=== PATIENT | female | born 1935 | race Caucasian/White ===

== ENCOUNTER 2017-01-21 22:22 | Emergency (ER) | payer MEDICARE, OTHER ==
[~2017-01-21] VITALS: Ht 157.5 cm; Wt 59.0 kg
[~2017-01-21 22:22] MED LIST: ALEN70SO PO; ASPI-605 PO; ATEN50TA PO; FLUO40CA8 PO; GLIP5TAB13 PO; LEVO50TA8 PO; LISI20TA61 PO; METF500T4 PO
--- NOTE | 2017-01-21 22:22 | NUR ---
TO BED 3 BIB PARAMEDICS C/O POSSIBLE SYNCOPE PER EMS REPORT. NO OBVIOUS HEAD TRAUMA NOTED. PLACE PT ON CARDIAC MONITORING, CONTINUOUS POX. PT AAOX2 NO ACUTE DISTRESS NOTED, RESP EVEN AND UNLABORED. SL 18G TO R FOREARM RADIATOR CORE TESTER.
--- NOTE | 2017-01-21 22:44 | NUR ---
MAC ARTIST AT BEDSIDE FOR BLOOD DRAW.
--- NOTE | 2017-01-21 22:58 | NUR ---
PT DAUGHTER AT BEDSIDE.
--- NOTE | 2017-01-21 22:59 | NUR ---
PT TRANSPORTED TO RADIOLOGY FOR CT HEAD.
--- NOTE | 2017-01-21 23:10 | NUR ---
PT BACK FROM RADIOLOGY. PENDING CT HEAD RESULT.
[2017-01-21 23:12] LABS: EOSINOPHILS # (AUTO) 0.1 /CMM (0.0-0.7); EOSINOPHILS % (AUTO) 0.4 % (0.0-6.0); HEMATOCRIT 32 % (33-45); HEMOGLOBIN 9.5 g/dL (11.5-14.8); LYMPHOCYTES # (AUTO) 1.1 /CMM (0.8-4.8); MEAN CORPUSCULAR HEMOGLOBIN 17 PG (26.0-33.0); MEAN CORPUSCULAR HGB CONC 29 g/dl (31.0-36.0); MEAN CORPUSCULAR VOLUME 58 fL (82-100); MONOCYTES # (AUTO) 0.5 /CMM (0.1-1.30); MONOCYTES % (AUTO) 4.1 % (2.0-12.0); NEUTROPHILS # (AUTO) 10.5 /CMM (1.8-8.9); NEUTROPHILS % (AUTO) 86.5 % (43.0-81.0); PLATELET COUNT (AUTO) 383 /CMM (150-450); RDW COEFFICIENT OF VARIATION 18.9 (11.5-15.0); RED BLOOD CELL COUNT(AUTO) 5.59 MIL/uL (4.0-5.2); WHITE BLOOD COUNT (AUTO) 12.2 K/uL (4.3-11.0)
[2017-01-21 23:25] LABS: CALCIUM, SERUM 9.4 mg/dL (8.5-10.1); CARBON DIOXIDE 29 mmol/L (21-32); CHLORIDE 106 mmol/L (98-107); GLUCOSE 311 mg/dL (74-106); POTASSIUM 4.4 mmol/L (3.5-5.1); SODIUM SERUM 142 mmol/L (136-145); UREA NITROGEN, BLOOD 18 mg/dL (7-18)
[2017-01-21 23:26] LABS: INR 0.92 (0.87-1.13); PROTHROMBIN TIME 9.6 SECS (9.5-12.7)
[2017-01-21 23:30] LABS: ALANINE AMINOTRANSFERASE 23 U/L (12-78); ALBUMIN 3.5 g/dL (3.4-5.0); ALKALINE PHOSPHATASE 164 U/L (46-116); ASPARTATE AMINOTRANSFERASE 15 U/L (15-37); BILIRUBIN,DIRECT 0.1 mg/dL (0.0-0.2); BILIRUBIN,TOTAL 0.4 mg/dL (0.2-1.0); TOTAL PROTEIN, SERUM 7.2 g/dL (6.4-8.2); TROPONIN I < 0.017 ng/mL (0.00-0.056)
--- NOTE | 2017-01-22 00:08 | NUR ---
PAGED PERLITE GRINDER PANEL JASPER TREVIZO
[2017-01-22 00:18] LABS: EOSINOPHILS % (MANUAL) 1 % (0-4); LYMPHOCYTES % (MANUAL) 8 % (16-48); MONOCYTES % (MANUAL) 4 % (0-11.0); NEUTROPHILS % (MANUAL) 87 (42-76)
--- NOTE | 2017-01-22 00:20 | NUR ---
PATIENT'S DAUGHTER PROVIDED ME WITH HER [employer] CARD. I CALLED [facility], I NOTIFIED THEM ER PHYSICIAN IS READY TO PRESENT CASE TO [facility].
--- NOTE | 2017-01-22 00:23 | NUR ---
MARY HERNÁNDEZ TALKING TO DR. GOOD FROM [facility] REGARDING PT.
--- NOTE | 2017-01-22 00:23 | NUR ---
RECEIVED CALL FROM [place] DR. GOOD; CALL TRANSFERED TO DR. STONE.
--- NOTE | 2017-01-22 00:37 | NUR ---
SPOKE TO [facility] WITH TRANSFER INFO RECEIVED. PT WILL BE GOING TO [facility], ACCEPTING MD DIEHL, PHONE NUMBER FOR REPORT . TRANSPORT ETA [id number].
--- NOTE | 2017-01-22 00:42 | NUR ---
REPORT CALLED TO [facility]. AWAITING TRANSPORT.
--- NOTE | 2017-01-22 01:51 | NUR ---
AMBULANCE CREW AT BEDSIDE FOR TRANSFER TO [facility]
--- NOTE | 2017-01-22 01:54 | NUR ---
REPORT GIVEN TO COMMITTEE MEMBERYANIRA IMRELES.
--- NOTE | 2017-01-22 02:13 | NUR ---
PT VERY AGITATED, REFUSING TRANSPORT. PT CONFUSED, NO ACUTE DISTRESS NOTED, RESP EVEN AND UNLABORED. ER MD AT BEDSIDE TO RE-EVAL PT WITH ORDERS RECEIVED. WILL CARRY OUT ORDERS.
[2017-01-22] MEDS ORDERED: LORAZEPAM INJ 2 MG/ML VIAL ONE (02:15)
--- NOTE | 2017-01-22 02:22 | NUR ---
PT MEDICATED BY RN PER ER MD ORDER.
[2017-01-22] MEDS ORDERED: LORAZEPAM INJ 2 MG/ML VIAL IV ONE (02:30)
[2017-01-22 02:32] VITALS: BP 124/63
--- NOTE | 2017-01-22 02:55 | NUR ---
PATIENT AGREED TO GO WITH TRANSPORT AT THIS TIME. PATIENT PICKED UP BY AMBULANCE CREW. PATIENT IS ALERT RESPONSIVE. VSS.
== END 2017-01-22 01:55 | disposition short-term general hospital (02) ==
LOC: ER 22:26
DX: R53.1 Weakness (principal); R55 Syncope and collapse; D64.9 Anemia, unspecified; I10 Essential (primary) hypertension; E11.9 Type 2 diabetes mellitus without complications; G30.9 Alzheimer's disease, unspecified; Z79.82 Long term (current) use of aspirin; Z79.84 Long term (current) use of oral hypoglycemic drugs
CPT/HCPCS: 36415; 70450; 71010; 80048; 80076; 84484; 85025; 85730; 93005; 96374; 99285; A4606; J2060; Z7610

== ENCOUNTER 2020-12-13 22:30 | Emergency (ER) | payer BC, MEDICAID, OTHER ==
[~2020-12-13] VITALS: Ht 167.6 cm; Wt 84.4 kg
[~2020-12-13 22:30] MED LIST changes: +LISI20TA31 PO; -LISI20TA61 PO; +METF-440 PO; -METF500T4 PO
--- NOTE | 2020-12-13 22:40 | NUR ---
PT BIBRA 78 C/O SYNCOPAL EPISODE ON TOILET LONGER THAN 25 MINUTES. BIBRA 78 C/O SYNCOPAL EPISODE ON TOILET LONGER THAN 25 MINUTES. A/OX3. TOLERATING ROOM AIR WELL
[2020-12-13] MEDS ORDERED: IV NS 0.9% 1,000 ML BAG IV ONE (23:00)
--- NOTE | 2020-12-13 23:01 | NUR ---
BLOOD WORK DRAWN. COVID SWAB COLLECTED VIA TEMPLATE MAKER AND SENT TO LAB
[2020-12-13 23:10] LABS: BASOPHILS % (AUTO) 0.4 % (0.0-2.0); EOSINOPHILS % (AUTO) 0.5 % (0.0-6.0); HEMATOCRIT 40 % (33-45); HEMOGLOBIN 11.9 g/dL (11.5-14.8); LYMPHOCYTES # (AUTO) 1.1 K/uL (0.8-4.8); LYMPHOCYTES % (AUTO) 9.3 % (20.0-44.0); MEAN CORPUSCULAR HGB CONC 30 g/dl (31.0-36.0); MEAN CORPUSCULAR VOLUME 69 fL (82-100); MONOCYTES # (AUTO) 0.9 K/uL (0.1-1.30); MONOCYTES % (AUTO) 7.8 % (2.0-12.0); NEUTROPHILS # (AUTO) 9.7 K/uL (1.8-8.9); PLATELET COUNT (AUTO) 380 K/uL (150-450); RED BLOOD CELL COUNT(AUTO) 5.79 MIL/uL (4.0-5.2); WHITE BLOOD COUNT (AUTO) 11.8 K/uL (4.3-11.0)
--- NOTE | 2020-12-13 23:20 | NUR ---
PT RETURNED FROM CT TO ER BED 4 VIA THEO
[2020-12-13 23:28] LABS: CALCIUM, SERUM 8.9 mg/dL (8.5-10.1); CARBON DIOXIDE 24 mmol/L (21-32); CHLORIDE 105 mmol/L (98-107); CREATININE 1.2 mg/dL (0.6-1.3); GLUCOSE 267 mg/dL (74-106); POTASSIUM 4.4 mmol/L (3.5-5.1); SODIUM SERUM 137 mmol/L (136-145); UREA NITROGEN, BLOOD 28 mg/dL (7-18)
[2020-12-13 23:37] LABS: ALANINE AMINOTRANSFERASE 31 U/L (12-78); ALBUMIN 3.4 g/dL (3.4-5.0); ALKALINE PHOSPHATASE 123 U/L (46-116); ASPARTATE AMINOTRANSFERASE 22 U/L (15-37); BILIRUBIN,DIRECT 0.1 mg/dL (0.0-0.2); BILIRUBIN,TOTAL 0.3 mg/dL (0.2-1.0); TOTAL PROTEIN, SERUM 6.5 g/dL (6.4-8.2)
--- NOTE | 2020-12-14 00:07 | NUR ---
URINE SAMPLE COLLECTED AND SENT TO LAB
[2020-12-14 00:23] LABS: BILIRUBIN,URINE MODERATE (NEGATIVE); COLOR,URINE YELLOW (YELLOW); LEUKOCYTE ESTERASE ,URINE Small (NEGATIVE); NITRITE, URINE Negative (NEGATIVE); PH,URINE 5.5 (5.0-8.0); PROTEIN,URINE 30 mg/dl (NEGATIVE); UGLUCOSE Negative (NEGATIVE)
--- NOTE | 2020-12-14 00:29 | NUR ---
IV removed. Catheter intact and site benign. Pressure and 4x4 applied to site. No bleeding noted.
--- NOTE | 2020-12-14 00:29 | NUR ---
Guanako jean in ED - 12/14/20 at 0029 by ARNEL Patient discharged to home in stable condition. Written and verbal after care instructions given. Patient verbalizes understanding of instruction.
--- NOTE | 2020-12-14 00:29 | NUR ---
Patient's Daughter (POA) does not wish to proceed with medical care recommended by Dr. Sarmiento. Patient and Patient's daughter given information related to possible complications, up to and including , which could occur as a result of leaving the hospital at this time. Patient's daughter verbalizes understanding of risks involved due to leaving against medical advice. Patient has signed AMA form.
[2020-12-14 00:30] VITALS: BP 109/76
[2020-12-14 00:41] LABS: BACTERIA,URINE Moderate /HPF (None Seen)
[2020-12-14 00:42] LABS: HYALINE CASTS, URINE Moderate /LPF (None Seen); SQUAMOUS EPITHELIAL CELL,UR Many /HPF (None Seen); WBC,URINE 21-50 /HPF (0-3)
[2020-12-14 00:43] LABS: MUCUS,URINE Moderate /LPF (None Seen)
== END 2020-12-14 00:31 | disposition left against medical advice (07) ==
LOC: ER 22:34
DX: R55 Syncope and collapse (principal); R41.0 Disorientation, unspecified; G30.9 Alzheimer's disease, unspecified; F02.80 Dementia in other diseases classified elsewhere, unspecified severity, without behavioral disturbance, psychotic disturbance, mood disturbance, and anxiety; I10 Essential (primary) hypertension; E10.9 Type 1 diabetes mellitus without complications; Z98.890 Other specified postprocedural states; Z79.899 Other long term (current) drug therapy; Z79.82 Long term (current) use of aspirin; Z79.84 Long term (current) use of oral hypoglycemic drugs
CPT/HCPCS: 36415; 70450; 71045; 80048; 80076; 81001; 84484; 85025; 87086; 93005; 96360; 99285; J7030

== ENCOUNTER 2022-06-11 13:13 | Emergency (ER) | payer BC, MEDICARE ==
[~2022-06-11] VITALS: Ht 165.1 cm; Wt 63.5 kg
--- NOTE | 2022-06-11 13:31 | NUR ---
PT A/O X4 STATES THAT SHE HAD FALLEN BACKWARD ON HER BACK AND IS NOW COMPLAINING OF PAIN. NO HEAD TRAUMA REPORTED BY THE PT. UPON INSPECTION NO HEAD TRAUMA NOTED. BACK IS TENDER TO TOUCH SLIGHTLY SWOLLEN. Addendum: 06/11/22 at 1332 by JOSEPHON PT CONNECTED TO BP AND PULSE OX MONITORING.
[2022-06-11] MEDS ORDERED: IBUPROFEN 600 MG TABLET PO ONE (14:30)
[2022-06-11] MEDS ORDERED: IBUPROFEN 600 MG TABLET ONE (14:34)
[2022-06-11 17:00] VITALS: BP 142/79
== END 2022-06-11 17:02 | disposition home or self-care (01) ==
LOC: ER 13:18
DX: S82.831A Other fracture of upper and lower end of right fibula, initial encounter for closed fracture (principal); S92.341A Displaced fracture of fourth metatarsal bone, right foot, initial encounter for closed fracture; I10 Essential (primary) hypertension; E10.8 Type 1 diabetes mellitus with unspecified complications; Z79.899 Other long term (current) drug therapy; W18.30XA Fall on same level, unspecified, initial encounter; Y93.01 Activity, walking, marching and hiking; Y92.89 Other specified places as the place of occurrence of the external cause; Y99.8 Other external cause status
CPT/HCPCS: 73564-TC; 73590-TC; 73610-TC; 73630-TC

== ENCOUNTER 2023-02-20 07:50 | Inpatient (IN) | payer BC ==
[~2023-02-20] VITALS: Ht 157.5 cm; Wt 64.4 kg
[2023-02-20] MEDS ORDERED: DONE10TA11 PO (09:37)
[2023-02-20] MEDS ORDERED: FLUO10CA26 PO (09:37)
[2023-02-20 09:38] LABS: BASOPHILS % (AUTO) 0.2 % (0.0-2.0); EOSINOPHILS # (AUTO) 0.1 K/uL (0.0-0.7); EOSINOPHILS % (AUTO) 0.9 % (0.0-6.0); HEMATOCRIT 47 % (33-45); HEMOGLOBIN 14.9 g/dL (11.5-14.8); LYMPHOCYTES # (AUTO) 1.3 K/uL (0.8-4.8); LYMPHOCYTES % (AUTO) 16.5 % (20.0-44.0); MEAN CORPUSCULAR HEMOGLOBIN 26 PG (26.0-33.0); MEAN CORPUSCULAR HGB CONC 32 g/dl (31.0-36.0); MEAN CORPUSCULAR VOLUME 81 fL (82-100); MONOCYTES # (AUTO) 0.5 K/uL (0.1-1.30); MONOCYTES % (AUTO) 5.9 % (2.0-12.0); NEUTROPHILS % (AUTO) 76.5 % (43.0-81.0); PLATELET COUNT (AUTO) 262 K/uL (150-450); RED BLOOD CELL COUNT(AUTO) 5.76 MIL/uL (4.0-5.2); RED CELL DISTRIBUTION WIDTH 14.4 % (11.5-15.0); WHITE BLOOD COUNT (AUTO) 7.8 K/uL (4.3-11.0)
[2023-02-20 09:51] LABS: PARTIAL THROMBOPLASTIN TIME 28.8 SEC (24.3-34.3); PROTHROMBIN TIME 10.6 SECS (9.2-11.1)
[2023-02-20 09:59] LABS: ALANINE AMINOTRANSFERASE 16 U/L (12-78); ALBUMIN 3.2 g/dL (3.4-5.0); ALKALINE PHOSPHATASE 104 U/L (46-116); ASPARTATE AMINOTRANSFERASE 16 U/L (15-37); BILIRUBIN,TOTAL 0.4 mg/dL (0.2-1.0); CALCIUM, SERUM 9.1 mg/dL (8.5-10.1); CARBON DIOXIDE 25 mmol/L (21-32); CHLORIDE 102 mmol/L (98-107); CREATININE 0.5 mg/dL (0.6-1.3); GLUCOSE 150 mg/dL (74-106); SODIUM SERUM 135 mmol/L (136-145); TOTAL PROTEIN, SERUM 6.9 g/dL (6.4-8.2); UREA NITROGEN, BLOOD 11 mg/dL (7-18)
[2023-02-20] MEDS ORDERED: MORPHINE SULFATE INJ 2 MG/ML DISP.SYRIN IV ONE (10:00)
[2023-02-20] MEDS ORDERED: ONDANSETRON HCL/PF - ER 4 MG/2 ML VIAL IV ONE (10:00)
[2023-02-20] MEDS ORDERED: ONDANSETRON HCL/PF 4 MG/2 ML VIAL ONE (10:30)
[2023-02-20] MEDS ORDERED: MORPHINE SULFATE INJ 4 MG/ML DISP.SYRIN ONE (10:31)
[2023-02-20 16:00] VITALS: BP 134/67; TEMP 98.1; O2SAT 97
[2023-02-20] MEDS: MORPHINE SULFATE INJ 2 MG/ML DISP.SYRIN IV PRN (16:18)
[2023-02-20] MEDS ORDERED: ONDANSETRON HCL/PF 4 MG/2 ML VIAL IVP PRN (17:30)
[2023-02-20] MEDS ORDERED: ACETAMINOPHEN 325 MG TABLET PO PRN (17:30)
[2023-02-20] MEDS ORDERED: Z GUARD REMEDY 4 OZ OINT TP PRN (17:30)
[2023-02-20] MEDS ORDERED: IV D5/0.45 NACL 1,000 ML IV PRN (17:30)
[2023-02-20] MEDS: BLOOD SUGAR DIAGNOSTIC 1 EACH STRIP IN SCH ×2 (17:30→21:15)
[2023-02-20] MEDS ORDERED: MORPHINE SULFATE INJ 2 MG/ML DISP.SYRIN IV PRN (17:30)
[2023-02-20] MEDS ORDERED: DEXTROSE 50%-WATER 50 ML DISP.SYRIN IV PRN (17:30)
[2023-02-20 20:00] VITALS: BP 146/67; TEMP 98.6; O2SAT 95
[2023-02-20] MEDS: ENOXAPARIN SODIUM 40 MG/0.4 ML DISP.SYRIN SQ SCH ×2 (21:00→21:04)
[2023-02-20] MEDS: DONEPEZIL 5 MG TABLET PO SCH ×2 (21:02→21:16)
[2023-02-21] MEDS: BLOOD SUGAR DIAGNOSTIC 1 EACH STRIP IN SCH ×4 (06:48→21:23)
[2023-02-21] MEDS: INSULIN REGULAR, HUMAN 100 UNIT/ML 3 ML VIAL SQ PRN ×4 (06:49→22:03)
[2023-02-21 08:00] VITALS: BP 146/86; TEMP 98.8; O2SAT 100
[2023-02-21] MEDS: Fluoxetine 10 mg capsule PO SCH (08:10)
[2023-02-21] MEDS: LEVOTHYROXINE SODIUM 50 MCG TABLET PO SCH (08:11)
[2023-02-21] MEDS: PANTOPRAZOLE 40 MG TABLET.DR PO SCH (08:12)
[2023-02-21 09:34] LABS: BASOPHILS # (AUTO) 0.1 K/uL (0.0-0.2); BASOPHILS % (AUTO) 1.5 % (0.0-2.0); EOSINOPHILS % (AUTO) 0.3 % (0.0-6.0); HEMATOCRIT 46 % (33-45); HEMOGLOBIN 14.8 g/dL (11.5-14.8); LYMPHOCYTES # (AUTO) 1.2 K/uL (0.8-4.8); LYMPHOCYTES % (AUTO) 13.6 % (20.0-44.0); MEAN CORPUSCULAR HEMOGLOBIN 26 PG (26.0-33.0); MEAN CORPUSCULAR HGB CONC 32 g/dl (31.0-36.0); MEAN CORPUSCULAR VOLUME 81 fL (82-100); MONOCYTES # (AUTO) 0.5 K/uL (0.1-1.30); MONOCYTES % (AUTO) 5.3 % (2.0-12.0); NEUTROPHILS # (AUTO) 6.9 K/uL (1.8-8.9); NEUTROPHILS % (AUTO) 79.3 % (43.0-81.0); PLATELET COUNT (AUTO) 279 K/uL (150-450); RED CELL DISTRIBUTION WIDTH 14.2 % (11.5-15.0); WHITE BLOOD COUNT (AUTO) 8.8 K/uL (4.3-11.0)
[2023-02-21 09:52] LABS: CALCIUM, SERUM 8.9 mg/dL (8.5-10.1); CREATININE 0.6 mg/dL (0.6-1.3); MAGNESIUM 1.8 mg/dL (1.8-2.4); PHOSPHORUS 3.3 mg/dL (2.5-4.9); POTASSIUM 3.8 mmol/L (3.5-5.1)
[2023-02-21 10:23] LABS: BAND % (MANUAL) 1 % (0.0-5.0); LYMPHOCYTES % (MANUAL) 11 % (16-48); MONOCYTES % (MANUAL) 10 % (0-11.0); NEUTROPHILS % (MANUAL) 78 (42-76); PLATELET ESTIMATE ADEQUATE
[2023-02-21] MEDS ORDERED: FUROSEMIDE 20 MG/2 ML VIAL IV ONE (11:00)
[2023-02-21] MEDS: ATORVASTATIN 10 MG TABLET PO SCH (11:21)
[2023-02-21 11:32] LABS: THYROID STIMULATING HORMONE 5.039 uIU/mL (0.358-3.74)
[2023-02-21] MEDS: MORPHINE SULFATE INJ 2 MG/ML DISP.SYRIN IV PRN (13:49)
[2023-02-21 16:00] VITALS: BP 156/81; TEMP 97.9; O2SAT 94
[2023-02-21 20:00] VITALS: BP 125/67; TEMP 98.4; O2SAT 95
[2023-02-21] MEDS: DONEPEZIL 5 MG TABLET PO SCH (21:05)
[2023-02-21] MEDS: ENOXAPARIN SODIUM 40 MG/0.4 ML DISP.SYRIN SQ SCH (21:07)
[2023-02-22] MEDS: BLOOD SUGAR DIAGNOSTIC 1 EACH STRIP IN SCH ×4 (06:38→23:14)
[2023-02-22] MEDS: INSULIN REGULAR, HUMAN 100 UNIT/ML 3 ML VIAL SQ PRN ×4 (06:41→23:15)
[2023-02-22] MEDS: PANTOPRAZOLE 40 MG TABLET.DR PO SCH (07:40)
[2023-02-22 08:00] VITALS: BP 122/64; TEMP 98.6; O2SAT 94
[2023-02-22] MEDS: ATORVASTATIN 10 MG TABLET PO SCH (08:04)
[2023-02-22] MEDS: Fluoxetine 10 mg capsule PO SCH (08:04)
[2023-02-22] MEDS: LEVOTHYROXINE SODIUM 50 MCG TABLET PO SCH (08:05)
[2023-02-22] MEDS: MORPHINE SULFATE INJ 2 MG/ML DISP.SYRIN IV PRN ×2 (09:54→17:04)
[2023-02-22 16:15] VITALS: BP 135/64; TEMP 98.6; O2SAT 97
[2023-02-22] MEDS ORDERED: MAGNESIUM HYDROXIDE 30 ML UDC PO PRN (17:30)
[2023-02-22] MEDS: HYDROCODONE/APAP 5/325MG TABLET PO PRN ×2 (17:33→23:35)
[2023-02-22 20:00] VITALS: BP 122/71; TEMP 98.1; O2SAT 97
[2023-02-22] MEDS: ENOXAPARIN SODIUM 40 MG/0.4 ML DISP.SYRIN SQ SCH (21:15)
[2023-02-22] MEDS: DONEPEZIL 5 MG TABLET PO SCH (21:49)
[2023-02-23 06:54] LABS: BASOPHILS % (AUTO) 0.2 % (0.0-2.0); EOSINOPHILS # (AUTO) 0.1 K/uL (0.0-0.7); EOSINOPHILS % (AUTO) 0.5 % (0.0-6.0); HEMATOCRIT 42 % (33-45); HEMOGLOBIN 13.9 g/dL (11.5-14.8); LYMPHOCYTES # (AUTO) 1.7 K/uL (0.8-4.8); LYMPHOCYTES % (AUTO) 14.7 % (20.0-44.0); MEAN CORPUSCULAR HEMOGLOBIN 27 PG (26.0-33.0); MEAN CORPUSCULAR HGB CONC 33 g/dl (31.0-36.0); MEAN CORPUSCULAR VOLUME 81 fL (82-100); MONOCYTES # (AUTO) 1.2 K/uL (0.1-1.30); MONOCYTES % (AUTO) 10.5 % (2.0-12.0); NEUTROPHILS # (AUTO) 8.3 K/uL (1.8-8.9); NEUTROPHILS % (AUTO) 74.1 % (43.0-81.0); PLATELET COUNT (AUTO) 253 K/uL (150-450); RED BLOOD CELL COUNT(AUTO) 5.19 MIL/uL (4.0-5.2); RED CELL DISTRIBUTION WIDTH 14.3 % (11.5-15.0); WHITE BLOOD COUNT (AUTO) 11.3 K/uL (4.3-11.0)
[2023-02-23 07:14] LABS: ALBUMIN 2.8 g/dL (3.4-5.0); BILIRUBIN,TOTAL 0.7 mg/dL (0.2-1.0); CALCIUM, SERUM 8.8 mg/dL (8.5-10.1); CREATININE 0.7 mg/dL (0.6-1.3); PHOSPHORUS 2.9 mg/dL (2.5-4.9); POTASSIUM 3.4 mmol/L (3.5-5.1); TOTAL PROTEIN, SERUM 6.3 g/dL (6.4-8.2)
[2023-02-23] MEDS: BLOOD SUGAR DIAGNOSTIC 1 EACH STRIP IN SCH ×4 (07:41→21:12)
[2023-02-23 08:00] VITALS: BP 134/82; TEMP 98.6; O2SAT 95
[2023-02-23] MEDS: PANTOPRAZOLE 40 MG TABLET.DR PO SCH (08:10)
[2023-02-23] MEDS ORDERED: FUROSEMIDE 100 MG/10 ML VIAL IV SCH (08:30)
[2023-02-23] MEDS: POTASSIUM CHLORIDE 20 MEQ TAB.PRT.SR PO SCH ×3 (09:00→10:41)
[2023-02-23] MEDS: Fluoxetine 10 mg capsule PO SCH ×2 (09:00→10:45)
[2023-02-23] MEDS: ATORVASTATIN 10 MG TABLET PO SCH ×2 (09:00→10:44)
[2023-02-23] MEDS: LEVOTHYROXINE SODIUM 50 MCG TABLET PO SCH ×2 (09:00→10:45)
[2023-02-23] MEDS: SPIRONOLACTONE 25 MG TABLET PO SCH ×2 (09:00→10:41)
[2023-02-23] MEDS: HYDROCODONE/APAP 5/325MG TABLET PO PRN ×2 (09:01→20:34)
[2023-02-23] MEDS: INSULIN REGULAR, HUMAN 100 UNIT/ML 3 ML VIAL SQ PRN ×3 (11:56→21:13)
[2023-02-23] MEDS: FUROSEMIDE 40 MG TABLET PO SCH ×2 (13:00→16:28)
[2023-02-23] MEDS ORDERED: FURO-144 PO (14:07)
[2023-02-23] MEDS ORDERED: ATOR10TA PO (14:07)
[2023-02-23] MEDS ORDERED: SPIR25TA6 PO (14:07)
[2023-02-23 16:00] VITALS: BP 125/59; TEMP 98.8; O2SAT 97
[2023-02-23 20:00] VITALS: BP 118/90; TEMP 97.9; O2SAT 97
[2023-02-23] MEDS: ENOXAPARIN SODIUM 40 MG/0.4 ML DISP.SYRIN SQ SCH (20:35)
[2023-02-23] MEDS: DONEPEZIL 5 MG TABLET PO SCH (21:12)
[2023-02-24] MEDS: BLOOD SUGAR DIAGNOSTIC 1 EACH STRIP IN SCH ×2 (06:44→12:26)
[2023-02-24 07:01] LABS: BASOPHILS % (AUTO) 0.3 % (0.0-2.0); EOSINOPHILS # (AUTO) 0.1 K/uL (0.0-0.7); EOSINOPHILS % (AUTO) 1.3 % (0.0-6.0); HEMATOCRIT 41 % (33-45); HEMOGLOBIN 13.2 g/dL (11.5-14.8); LYMPHOCYTES # (AUTO) 1.7 K/uL (0.8-4.8); LYMPHOCYTES % (AUTO) 18.8 % (20.0-44.0); MEAN CORPUSCULAR HEMOGLOBIN 26 PG (26.0-33.0); MEAN CORPUSCULAR HGB CONC 32 g/dl (31.0-36.0); MEAN CORPUSCULAR VOLUME 81 fL (82-100); MONOCYTES # (AUTO) 0.9 K/uL (0.1-1.30); MONOCYTES % (AUTO) 9.9 % (2.0-12.0); NEUTROPHILS # (AUTO) 6.3 K/uL (1.8-8.9); NEUTROPHILS % (AUTO) 69.7 % (43.0-81.0); PLATELET COUNT (AUTO) 276 K/uL (150-450); RED BLOOD CELL COUNT(AUTO) 5.08 MIL/uL (4.0-5.2); RED CELL DISTRIBUTION WIDTH 14.2 % (11.5-15.0)
[2023-02-24 07:06] LABS: ALANINE AMINOTRANSFERASE 15 U/L (12-78); ALBUMIN 2.6 g/dL (3.4-5.0); ALKALINE PHOSPHATASE 87 U/L (46-116); ASPARTATE AMINOTRANSFERASE 13 U/L (15-37); BILIRUBIN,TOTAL 0.6 mg/dL (0.2-1.0); CALCIUM, SERUM 8.9 mg/dL (8.5-10.1); CARBON DIOXIDE 29 mmol/L (21-32); CHLORIDE 100 mmol/L (98-107); CREATININE 0.6 mg/dL (0.6-1.3); GLUCOSE 112 mg/dL (74-106); PHOSPHORUS 3.2 mg/dL (2.5-4.9); POTASSIUM 3.3 mmol/L (3.5-5.1); SODIUM SERUM 136 mmol/L (136-145); TOTAL PROTEIN, SERUM 6.2 g/dL (6.4-8.2); UREA NITROGEN, BLOOD 16 mg/dL (7-18)
[2023-02-24 07:30] VITALS: BP 137/61; TEMP 97.9; O2SAT 100
[2023-02-24] MEDS: PANTOPRAZOLE 40 MG TABLET.DR PO SCH (07:30)
[2023-02-24] MEDS: SPIRONOLACTONE 25 MG TABLET PO SCH (09:14)
[2023-02-24] MEDS: LEVOTHYROXINE SODIUM 50 MCG TABLET PO SCH (09:14)
[2023-02-24] MEDS: ATORVASTATIN 10 MG TABLET PO SCH (09:15)
[2023-02-24] MEDS: POTASSIUM CHLORIDE 20 MEQ TAB.PRT.SR PO SCH ×2 (09:15→10:25)
[2023-02-24] MEDS: Fluoxetine 10 mg capsule PO SCH (09:15)
[2023-02-24] MEDS: HYDROCODONE/APAP 5/325MG TABLET PO PRN (09:17)
[2023-02-24] MEDS: INSULIN REGULAR, HUMAN 100 UNIT/ML 3 ML VIAL SQ PRN (12:27)
[2023-02-24] MEDS ORDERED: HYDR-4275 PO (15:56)
== END 2023-02-24 14:35 | disposition home health service (06) | DRG 534 ==
LOC: ER 07:52 → TELE 11:49 → MED 13:19
PROVIDERS: ADMIT Nurse Practitioner Acute Care
DX: S72.392A Other fracture of shaft of left femur, initial encounter for closed fracture (principal); M97.02XA Periprosthetic fracture around internal prosthetic left hip joint, initial encounter; E87.1 Hypo-osmolality and hyponatremia; I50.32 Chronic diastolic (congestive) heart failure; F02.83 Dementia in other diseases classified elsewhere, unspecified severity, with mood disturbance; X58.XXXA Exposure to other specified factors, initial encounter; E03.9 Hypothyroidism, unspecified; E78.5 Hyperlipidemia, unspecified; F32.A Depression, unspecified; I11.0 Hypertensive heart disease with heart failure; M81.0 Age-related osteoporosis without current pathological fracture; Z88.0 Allergy status to penicillin; I35.0 Nonrheumatic aortic (valve) stenosis; Y93.9 Activity, unspecified; Y92.009 Unspecified place in unspecified non-institutional (private) residence as the place of occurrence of the external cause; G30.9 Alzheimer's disease, unspecified; E10.9 Type 1 diabetes mellitus without complications; Z79.4 Long term (current) use of insulin
CPT/HCPCS: 36415; 71045-TC; 73502; 73552; 73560-TC; 73700-TC; 80048-TC; 80053-TC; 80061-TC; 82728-TC; 82962-TC; 83540-TC; 83735-TC; 83880; 84100-TC; 84439-TC; 84443-TC; 85025-TC; 85730-TC; 93307-TC; A6407; G0378; J1650; J1815; J1940; J2270; J2405